=== PATIENT | male | born 1960 | race Two or more races ===

== ENCOUNTER 2020-03-26 05:58 | Day surgery (SDC) | payer OTHER ==
[~2020-03-26 05:58] MED LIST: DIGOXIN PO; OMEPRAZOLE20 M1 PO; [UNRECOGNIZED DRUG - OTHER] PO
== END 2020-03-26 15:40 | disposition home or self-care (01) ==
LOC: CIR.AMB 05:58
PROVIDERS: ATTEND Urology
DX: N20.0 Calculus of kidney (principal); N20.1 Calculus of ureter; Z20.828 Contact with and (suspected) exposure to other viral communicable diseases

== ENCOUNTER 2020-05-21 08:17 | Day surgery (SDC) | payer OTHER ==
[~2020-05-21 08:17] MED LIST changes: +BETIMOL5 M1 OP; +PREVACID15 MG PO; +TRAVATAN Z5 ML OP
== END 2020-05-21 20:15 | disposition home or self-care (01) ==
LOC: CIR.AMB 08:17
PROVIDERS: ATTEND Urology
DX: N20.1 Calculus of ureter (principal); N20.0 Calculus of kidney; Z20.828 Contact with and (suspected) exposure to other viral communicable diseases